=== PATIENT | male | born 1990 | race Caucasian/White ===

== ENCOUNTER → 2020-04-13 15:08 | Outpatient (BNVA) | payer SELFPAY | PROVIDERS: Family Provider Nurse Practitioner Family; Visit Provider Orthopaedic Surgery | DX: S82.002A Unspecified fracture of left patella, initial encounter for closed fracture (principal); X58.XXXA Exposure to other specified factors, initial encounter; Z20.822 Contact with and (suspected) exposure to COVID-19 | CPT/HCPCS: 73562; 87635 ==

== ENCOUNTER 2020-04-16 13:21 | Day surgery (SDC) | payer SELFPAY ==
[2020-04-15 14:48] VITALS: BMI 26.6
[2020-04-16] VITALS (13 sets, daily range): BP systolic 128–165; BP diastolic 70–102; PULSE 80–105; RESP 12–20; TEMP 36.4–36.8; O2SAT 96–100
--- NOTE | 2020-04-16 13:54 | W.PM.OPSUD ---
Surgery/Procedure H&P Update DATE OF PROCEDURE: April 16, 2020 DATE H&P PERFORMED: 04/13/20 PREOP DIAGNOSIS: Fracture left patella PLANNED PROCEDURE: Operation Date: 04/16/20 15:00 Proposed Procedures p ORIF left Patella 46048 S82.002A(Left) - Twan Levin MD
[2020-04-16] MEDS: sodium chloride 0.9% 1,000 ML 30 ML IV (13:55)
[2020-04-16] MEDS: midazolam 1 mg/mL INJ 2 mL 2 MG IVP (14:05)
--- NOTE | 2020-04-16 14:11 | ANES.PREANE2 ---
Pre-Anesthetic Assessment Pre-Anesthetic Assessment: Height/Weight: Height 1.73 m Weight 79.379 kg Temp Pulse Resp BP 97.9 F 99 16 134/82 04/16/20 13:33 04/16/20 13:33 04/16/20 13:33 04/16/20 13:33 Preop Diagnosis: Fracture left patella Proposed Procedure: Operation Date: 04/16/20 15:00 Proposed Procedures p ORIF left Patella [id number] S82.002A(Left) - Twan Levin MD Familial anesthetic complications: None Was Beta Nakul taken within 24 hours: N/A Last intake: Intake Last Liquid Date 04/16/20 Last Liquid Time 09:30 Last Solid Date 04/15/20 Last Solid Time 22:00 Social: Social History: No alcohol and No tobacco Exam: Pre-Anes Outpt Exam: alert, oriented x 3, clear to auscultation bilaterally and regular rate & rhythm Airway: Cervical ROM: WNL MP: 2 Dentition: Chipped and Other (missing) Pulmonary: Pulmonary: Sleep apnea (? undiagnosed) Anesthetic Plan: ASA status: 2 Anesthesia: General and Regional (specify below) Risk of > 500 ml blood loss (7ml/kg in children): No Meds/Allergies Current Medications: Current Medications Generic Name Dose Route Start Last Admin Trade Name Freq PRN Reason Stop Dose Admin Sodium Chloride 1,000 mls @ 30 ml s/hr 04/16/20 13:30 04/16/20 13:55 Sodium Chloride 0.9% IV 04/17/20 13:29 30 mls/hr .Q24H KATJA Administration PFSH Anesthesia PFSH: Social History Smoking and tobacco status: current every day smoker Current gender identity: Male Data Anesthesia Cardiac Studies: No Data to Display
--- NOTE | 2020-04-16 14:11 | ANES.PROC ---
Anesthesia Procedures Procedure/Date: 04/16/20 Nerve Block ^: Nerve Block 1: Main Anesthesia: general anesthesia Time Out Performed: Yes Consent: requested by attending/covering physician, from patient, risks and benefits reviewed and patient agrees to proceed Nerve block location: adductor canal (L) Anesthesia monitors applied: pulse oximetry, EKG and BP cuff Nerve block position: supine Anesthetic Used: ropivicaine 0.5% and with decadron (4 mg) Amount of anesthesia used (mL): 30 Ultrasound used to: recognize landmarks Nerve Stimulator Used?: No Interscalene/Femoral BLK: 4 stimuplex 21 g needle used for position and inplane approach and visualize local anesthetic spread Injection: neg aspiration of heme Patient Tolerated Procedure: well and no complications Complications: none
--- NOTE | 2020-04-16 15:47 | PM.OP ---
Operative Report Date of procedure: April 16, 2020 Pre-op Diagnosis: Fracture left patella Post-op diagnosis: same Post-op Findings: The comminuted fracture left patella Procedure Done: Open reduction internal fixation left patella Pathology: none sent Anesthesia: General Estimated blood loss (mL): 20 Tourniquet time (min): 50 Complications: None Findings: The patient had a comminuted fracture of the inferior patella consisting of 2 predominant fragments approximately 1 cm in diameter attached to the patella Condition: stable Disposition: PACU Procedure: Mr. Benitez was taken to the operating room and given 2 g of Ancef. He is prepped and draped in the supine position with a tourniquet on the left thigh. A timeout was performed. A 6 cm long incision was made over the patella. Dissection was carried down with electrocautery to the patella. A longitudinal split was made in the retinaculum over the fracture and the retinaculum mobilized medially and laterally allowing access to the patella. The comminuted inferior pole fracture was identified. The 2 2 larger fragments were identified however the bone quality and comminution did not make surgical show surgical stabilization with screws or wires feasible. The decision was made to use the fragments to assist in a suture repair of the patella tendon to the more proximal fragments. A drill bit was used to drill 3 holes from the exposed fracture surface of the proximal fragment exiting through the superior patella. Through each hole 8-0 Prolene suture was passed. A [employer] Nephew arthrotape was then passed through the medial aspect of the most medial fragment with a needle. He was weaved through the medial patellar tendon with a locking Krak?w stitch and brought back up exiting most lateral portion of that fragment. A second ultra tape was weaved in identical fashion through the lateral fragment. The central ends of both sutures were then shuttled through the center drill hole in the patella the medial Ultratape through the medial hole, and the lateral Ultratape through the lateral hole. The sutures were secured bringing the patellar tendon and comminuted fragments up into tight opposition with the larger more proximal fragment. The sutures were then passed anterior to the patella and moved through the proximal patellar tendon reinforcing the repair anteriorly. Finally an ultra tape suture was passed through the superior retinaculum and again around the patellar tendon and secured overlying the patella forming an additional tension construct. The wound was irrigated with saline. The extensor retinaculum was closed with 2-0 Vicryl. Deep tissues were closed with 2-0 Vicryl. The skin was closed with skin jaqueline. Xeroflo gauze 4 x 4's, and ABD pad, web roll, and a compressive Zeb were applied. The patient was placed in his knee immobilizer and extubated and taken recovery in stable condition.
[2020-04-16] MEDS: morphine 4 mg/mL SDV 1 mL IVP (16:19)
[2020-04-16] MEDS: ketorolac 30 mg/mL INJ IVP (16:32)
[2020-04-16] MEDS: oxyCODONE-APAP 5-325 mg Tablet 1 TAB PO (16:45)
--- NOTE | 2020-04-16 18:02 | ANE.PACU2 ---
Inpatient post-anesthesia follow up: Airway intact: Yes Vital signs: Temperature 98.2 F Pulse Rate 80 Respiratory Rate 18 Blood Pressure 142/99 Pulse Oximetry 99 Oxygen Delivery Me thod Room Air Oxygen Flow Rate 8 Fraction of Inspir ed Oxygen Hydration adequate: Yes Nausea and vomiting: No Pain level: 5 Mental status: Baseline
== END 2020-04-16 17:53 | disposition home or self-care (01) ==
PROVIDERS: Family Provider Nurse Practitioner Family; Visit Provider Orthopaedic Surgery
PROC: (CPT 27524; principal; 2020-04-16 15:00)
DX: S82.002A Unspecified fracture of left patella, initial encounter for closed fracture (principal); X58.XXXA Exposure to other specified factors, initial encounter; G47.30 Sleep apnea, unspecified; F17.210 Nicotine dependence, cigarettes, uncomplicated
CPT/HCPCS: 27524; 64447; 76942; 96374; C1713; J0131; J0690; J1100; J1580; J1885; J2250; J2270; J2405; J2704; J2795; J3010; J3490; J7030

== ENCOUNTER → 2020-06-08 14:39 | Outpatient (BNVA) | payer OTHER, SELFPAY | PROVIDERS: Family Provider Nurse Practitioner Family; Visit Provider Orthopaedic Surgery | DX: Z48.89 Encounter for other specified surgical aftercare (principal); S82.032D Displaced transverse fracture of left patella, subsequent encounter for closed fracture with routine healing; X58.XXXD Exposure to other specified factors, subsequent encounter | CPT/HCPCS: 73560; 73565 ==

== ENCOUNTER → 2020-07-07 14:44 | Outpatient (BNVA) | payer SELFPAY | PROVIDERS: Family Provider Nurse Practitioner Family; Visit Provider Orthopaedic Surgery | DX: Z48.89 Encounter for other specified surgical aftercare (principal); S82.042D Displaced comminuted fracture of left patella, subsequent encounter for closed fracture with routine healing; X58.XXXD Exposure to other specified factors, subsequent encounter | CPT/HCPCS: 73560; 73565 ==

== ENCOUNTER → 2021-03-29 13:10 | Outpatient (BNVA) | payer SELFPAY | PROVIDERS: Family Provider Nurse Practitioner Family; Visit Provider Nurse Practitioner | DX: N39.0 Urinary tract infection, site not specified (principal); Z20.2 Contact with and (suspected) exposure to infections with a predominantly sexual mode of transmission | CPT/HCPCS: 81000; 87491; 87591 ==

== ENCOUNTER 2023-05-03 15:13 | Emergency (ER) | payer SELFPAY ==
[2023-05-03 15:28] VITALS: BP 121/79; PULSE 77; RESP 18; TEMP 36.7; O2SAT 96
--- NOTE | 2023-05-03 16:13 | XRR_ITS ---
PROCEDURE INFORMATION: Exam: XR Right Hand Exam date and time: 05/03/2023 4:40 PM Age: 32 years old Clinical indication: Injury or trauma; Other: Hit hand on stove; Blunt trauma (contusions or hematomas); Right; Additional info: Pain TECHNIQUE: Imaging protocol: Radiologic exam of the right hand. Views: 3 or more views. COMPARISON: CR XR forearm RT 2V [id number] 05/03/2023 4:40 PM FINDINGS: Bones/joints: Normal. Soft tissues: Normal. XR/XR hand RT min 3V* [id number] IMPRESSION: No acute findings.
--- NOTE | 2023-05-03 16:13 | XRR_ITS ---
PROCEDURE INFORMATION: Exam: XR Right Forearm Exam date and time: 05/03/2023 4:40 PM Age: 32 years old Clinical indication: Injury or trauma; Other: Hit on stove; Blunt trauma (contusions or hematomas); Arm, lower; Right; Additional info: Pain TECHNIQUE: Imaging protocol: Radiologic exam of the right forearm. Views: 2 views. COMPARISON: CR XR hand RT min 3V* [id number] 05/03/2023 4:40 PM FINDINGS: Bones/joints: There is an acute transverse, nondisplaced fracture involving the mid diaphysis of the ulna. No other bony abnormality is noted. Soft tissues: Normal. XR/XR forearm RT 2V [id number] IMPRESSION: Acute fracture of the ulnar diaphysis
--- NOTE | 2023-05-03 16:20 | W.ED.EXTPRO ---
HPI - Extremity Problem General: Chief complaint: Extremity Injury, Upper Stated complaint: right arm pain Time Seen by Provider: 05/03/23 16:13 History of Present Illness: 32-year-old male presents emergency room complaining of right forearm pain he fell on the backstop of the stove catching his arm midshaft all across the ulna as he landed a couple of days ago he has numbness and tingling complaining of severe pain in the arm with any pronation or supination of the wrist. He can move the fingers without pain but if he flexes to make a full fist that causes more discomfort he localizes it more to the distal radius. No other injuries at this time. [facility] ED PFSH: Social History Smoking and tobacco/nicotine status: former use of tobacco/nicotine Current gender identity: Male Course Vital Signs: Vital signs: Vital Signs Temperature 98.1 F 05/03/23 15:28 Pulse Rate 77 05/03/23 15:28 Respiratory Rate 18 05/03/23 15:28 Blood Pressure 121/79 05/03/23 15:28 Pulse Oximetry 96 05/03/23 15:28 Oxygen Delivery Me thod Room Air 05/03/23 15:28 MDM - Extremity (Nontraumatic) Medical Decision Making Ulnar fracture minimally displaced (nightstick fracture). This consistent with his description of events he can of fell on an object caught all of his weight on the midshaft of his forearm and has had severe pain since then. He has have some numbness and tingling to his hands but is not in imperial ulnar nerve distribution is actually more in the medial nerve distribution. He has no sign of compartment syndrome at this time there is not excessive pain with passive range of motion. Will place him in a ulnar gutter splint and have him follow-up with a orthopedic doctor return if he has further problems. Medical Records I reviewed the patient's medical records. Lab Data I reviewed the patient's lab results. Radiology Impressions Forearm X-Ray 05/03/23 16:13 IMPRESSION: Acute fracture of the ulnar diaphysis Hand X-Ray 05/03/23 16:13 IMPRESSION: No acute findings. All radiology interpretation(s) finalized by discharge Discharge Plan Discharge Patient Disposition: Home Clinical Impression: Fracture of ulnar shaft, closed Qualifiers: Encounter type: initial encounter Fracture morphology: transverse Fracture alignment: nondisplaced Laterality: right Qualified Code(s): S52.224A - Nondisplaced transverse fracture of shaft of right ulna, initial encounter for closed fracture Condition: Stable Prescriptions: New hydrocodone-acetaminophen 5-325 mg tablet 1 tab PO Q6H PRN (Reason: pain) Qty: 10 0RF No Action prednisone 10 mg tablet 30 mg PO DAILY 5 Days Qty: 15 0RF doxycycline hyclate 100 mg capsule 100 mg PO DAILY 10 Days Qty: 20 0RF Discharge Orders: Discharge ED (Routine); Ordered 05/03/23 Ordered By: Pj Alonzo Discharge Diet: Usual diet Discharge Activity: Limit activity as instructed Patient Instructions: Opioid Safety, Pain Management Activity Restrictions/Additional Instructions: Thank you for choosing [facility] for your healthcare needs today. Please realize this is an emergency room and that we are providing you with a medical screening exam and this may not be complete and all inclusive of all the testing and or work up that you may need to determine your ailment or severity of your illness. It is very important that you follow up as instructed or that you return to the Emergency Department should you have concerns or if your condition changes or worsens in any way. You were seen today for a fracture of your right ulna. You are placed in a splint you should use the splint and sling until released by orthopedics. [employer] account manager will make arrangements for you to follow-up with the orthopedic clinic. Coding Level of Care Code ED Facing End Trimmer for Jeremiah Shah
[2023-05-03] MEDS: HYDROcodone-acetaminophen 5-325 mg Tablet 1 TAB PO (17:08)
--- NOTE | 2023-05-03 17:36 | DCPLANNER ---
Message sent to Ortho for a follow up appointment
== END 2023-05-03 18:00 | disposition home or self-care (01) ==
PROVIDERS: Emergency Provider Family Medicine
DX: S52.224A Nondisplaced transverse fracture of shaft of right ulna, initial encounter for closed fracture (principal); Z87.891 Personal history of nicotine dependence; W19.XXXA Unspecified fall, initial encounter
CPT/HCPCS: 29125; 73090; 73130; 99283

== ENCOUNTER → 2023-05-22 15:51 | Outpatient (BNVA) | payer SELFPAY | PROVIDERS: Referring Provider Family Medicine; Visit Provider Specialist | DX: S52.234A Nondisplaced oblique fracture of shaft of right ulna, initial encounter for closed fracture; W01.198A Fall on same level from slipping, tripping and stumbling with subsequent striking against other object, initial encounter | CPT/HCPCS: 73090 ==

== ENCOUNTER 2023-05-25 06:00 | Outpatient (CLI) | payer SELFPAY | END 2023-05-25 06:01 | disposition home or self-care (01) | LOC: SOT 05-26 11:19 | PROVIDERS: Visit Provider Specialist | DX: Z46.89 Encounter for fitting and adjustment of other specified devices (principal); S52.201D Unspecified fracture of shaft of right ulna, subsequent encounter for closed fracture with routine healing; W22.8XXD Striking against or struck by other objects, subsequent encounter | CPT/HCPCS: L3982 ==